=== PATIENT | male | born 1985 | race Two or more races ===

== ENCOUNTER 2021-08-17 00:41 | Emergency (ER) | payer OTHER ==
[~2021-08-17] VITALS: Ht 170.2 cm; Wt 70.3 kg
[2021-08-17] MEDS ORDERED: KETO10TA2 PO (03:01)
== END 2021-08-17 03:06 ==
LOC: ER 00:41
DX: S63.281A Dislocation of proximal interphalangeal joint of left index finger, initial encounter (principal); W18.09XA Striking against other object with subsequent fall, initial encounter; Y93.89 Activity, other specified; Y92.59 Other trade areas as the place of occurrence of the external cause; Y99.8 Other external cause status